=== PATIENT | female | born 1965 | race Caucasian/White ===

== ENCOUNTER → 2020-06-16 09:21 | Outpatient (BNVA) | payer MEDICARE, MEDICAID, SELFPAY | PROVIDERS: PCP Internal Medicine; Visit Provider Nurse Practitioner Family | DX: Z13.89 Encounter for screening for other disorder (principal) | CPT/HCPCS: Q3014 ==

== ENCOUNTER → 2020-07-01 10:48 | Outpatient (REF) | payer MEDICARE, MEDICAID, SELFPAY | LOC: HO.SL 10:48 | PROVIDERS: PCP Internal Medicine; Visit Provider Nurse Practitioner Family | DX: G47.33 Obstructive sleep apnea (adult) (pediatric) (principal) | CPT/HCPCS: 95806 ==

== ENCOUNTER → 2020-09-22 08:28 | Outpatient (BNVA) | payer MEDICARE, MEDICAID, SELFPAY | PROVIDERS: PCP Internal Medicine; Visit Provider Nurse Practitioner Family | CPT/HCPCS: Q3014 ==

== ENCOUNTER → 2021-01-12 10:35 | Outpatient (BNVA) | payer MEDICARE, MEDICAID, SELFPAY | PROVIDERS: PCP Internal Medicine; Visit Provider Nurse Practitioner Family | DX: G47.33 Obstructive sleep apnea (adult) (pediatric) (principal) | CPT/HCPCS: 99212 ==

== ENCOUNTER → 2021-04-14 20:52 | Outpatient (REF) | payer MEDICARE, MEDICAID, SELFPAY | LOC: HO.SL 20:52 | PROVIDERS: Visit Provider Nurse Practitioner Family | DX: G47.33 Obstructive sleep apnea (adult) (pediatric) (principal) | CPT/HCPCS: 95811 ==

== ENCOUNTER → 2021-05-04 08:18 | Outpatient (BNVA) | payer MEDICARE, MEDICAID, SELFPAY | PROVIDERS: PCP Internal Medicine; Visit Provider Nurse Practitioner Family | DX: Z13.89 Encounter for screening for other disorder (principal) | CPT/HCPCS: Q3014 ==

== ENCOUNTER → 2021-08-27 08:14 | Outpatient (BNVA) | payer MEDICARE, MEDICAID, SELFPAY | PROVIDERS: PCP Internal Medicine; Visit Provider Nurse Practitioner Family | DX: G47.33 Obstructive sleep apnea (adult) (pediatric) (principal) | CPT/HCPCS: 99212 ==

== ENCOUNTER 2023-02-15 15:50 | Emergency (ER) | payer MEDICAID, SELFPAY ==
[2023-02-15 16:17] VITALS: BP 152/89; PULSE 94; RESP 16; TEMP 37; O2SAT 97; BMI 30.7
--- NOTE | 2023-02-15 16:18 | ED.GENADULT ---
HPI - General Adult General Chief complaint: General Medical Stated complaint: needs ultrasound.. Time Seen by Provider: 02/15/23 18:43 Source: patient, RN notes reviewed and old records reviewed Mode of arrival: ambulatory Limitations: no limitations History of Present Illness HPI narrative: 57-year-old female with past medical history significant for DVT not currently anticoagulated presents for evaluation of right calf pain. Patient reports that she felt a bump in her right lower leg and some pain over the last few days She tried to call her doctor to get an appointment but was told to go to the ER to rule out DVT instead Denies any chest pain or shortness of breath She states that she has not been on anticoagulation for approximately 6 years since her last DVT No fevers or chills She states that her son was with her tested positive for COVID-19 yesterday. She has no signs or symptoms of COVID-19 but would like to be tested Related Data Home Medications Medication Instructions Recorded Confirmed atorvastatin 40 mg tablet 40 mg PO BEDTIME 06/16/20 01/12/21 estradiol 10 mcg vaginal tablet 10 mcg vaginal 2XW 06/16/20 01/12/21 fluoride (sodium) 1.1 % dental dental BEDTIME 06/16/20 01/12/21 paste mirabegron 50 mg tablet,extended 50 mg PO DAILY 06/16/20 01/12/21 release 24 hr omeprazole 40 mg capsule,delayed 40 mg PO DAILY 06/16/20 01/12/21 release duloxetine 20 mg capsule,delayed 60 mg PO BID 08/27/21 release Allergies Allergy/AdvReac Type Severity Reaction Status Date / Time No Known Allergies Allergy Verified 08/27/21 08:26 Review of Systems Constitutional: Constitutional: Denies chills and Denies fever(s) Eyes: Eyes: Denies blurry vision ENT: Denies sore throat Cardiovascular: Cardiovascular: Denies chest pain and Denies dyspnea Respiratory: Respiratory: Denies cough and Denies dyspnea Gastrointestinal: Gastrointestinal: Denies abdominal pain, Denies nausea and Denies vomiting Musculoskeletal: Musculoskeletal: Denies back pain Comments: Right leg pain Integumentary/Breasts: Skin/Breast: Denies rash PMFSH Past Medical History Onset Date is defined in the Problem List Problems that require an onset date and time if occurred within 24 hrs of arrival to the ED Aortic Dissection and Rupture; Neurologic impairment; Cardiopulmonary Arrest; Endotracheal Intubation; Insertion or Replacement of Mechanical Circulatory Assist Device Surgical History H/O meniscectomy of right knee History of meniscectomy of left knee Family History Family History Mother Pacemaker Heart disease Father HTN (hypertension) Heart disease Sister No problems noted. Brother No problems noted. Social History Social History Alcohol intake: current Alcohol intake frequency: holidays/special occasions only Patient Tobacco Use Status: Never used Tobacco Advance Directives: No Advance Directives Information Provided: No Physical Exam ED Vital Signs: Vital Signs - 24 hr 02/15/23 16:17 02/15/23 18:42 Temperature 98.6 F Pulse Rate 94 88 Respiratory Rate 16 16 Blood Pressure 152/89 H 137/95 H Pulse Oximetry 97 98 Oxygen Delivery Method Room Air Room Air BMI result Body Mass Index 30.7 Const General: healthy appearing, comfortable, no acute distress, alert and awake Nutritional Appearance: well nourished Orientation/consciousness: patient oriented x3 HENMT Head: Yes normocephalic and Yes atraumatic Eyes Eyelids: Yes eyelids normal Conjunctivae: conjunctivae normal Sclerae: sclerae normal Corneas: corneas normal Pupils: Equal, round and reactive pupils present EOM: EOMs intact bilaterally Neck Neck: Yes full ROM Resp Effort & Inspection: normal respiratory effort, able to speak in complete sentences and not labored Skin General skin exam: elasticity normal Neuro General: patient oriented x3 Cranial nerves: Yes Equal, round and reactive pupils present and Yes Bilaterally intact EOM present Cognition (Neuro): normal cognition Extrem Other: Moving all extremities well without any obvious deformities. No rashes to the right lower extremity, no erythema. The patient does have varicose veins the right lower leg. Positive calf tenderness, negative Homans sign Course Course Course Narrative: RME: 57 yo w/ PMHx DVT presenting to the ED c/o requesting ultrasound of LLE due to concern of blood clot. Not currently on anticoagulation. Admits son tested positive for COVID, did test negative 2x at home on home COVID testing Venous duplex ultrasound, COVID and influenza testing ordered Full HPI, ROS and PE to be performed by primary ED provider. Medical Decision Making Medical Decision Making MDM Narrative: Patient had ultrasound to evaluate for DVT. She has no evidence of DVT but does have superficial thrombophlebitis. I discussed this at length with her. She was also tested for COVID-19 which tested negative. Her vital signs are stable, she is stable for discharge at this time. Differential Diagnosis Differential Diagnoses: The differential diagnosis associated with the presentation includes DVT Calf pain Varicose veins Thrombophlebitis COVID-19 Lab Data Labs: Lab Results 02/15/23 Range/Units 16:48 COVID-19 (DORA) Negative (Negative) COVID-19 Clin Com See Note Influenza Type A (JERRY) Negative (Negative) Influenza Type B (JERRY) Negative (Negative) Influenza A & B Note See Note Radiology Impression Discussion of test interpretation with radiology: I have reviewed the radiologist's reading. (No evidence of DVT) Discharge Plan Discharge Clinical Impression: Superficial thrombophlebitis Patient Disposition: Home, Self-Care Instructions: Superficial Thrombophlebitis (ED) Additional Instructions: Your ultrasound was negative for DVT You do have superficial thrombophlebitis which is likely the cause of your discomfort You may apply warm compresses to the swollen area You may use an [id number] baby aspirin daily as well Call your primary doctor to schedule follow-up Return for new or worsening symptoms Prescriptions: No Action Myrbetriq 50 mg tablet extended release 24 hr 50 mg PO DAILY omeprazole 40 mg capsule,delayed release(DR/EC) 40 mg PO DAILY estradiol 10 mcg tablet 10 mcg vaginal 2XW atorvastatin 40 mg tablet 40 mg PO BEDTIME fluoride (sodium) 1.1 % paste dental BEDTIME duloxetine 20 mg capsule,delayed release(DR/EC) 60 mg PO BID
[2023-02-15 18:42] VITALS: BP 137/95; PULSE 88; RESP 16; O2SAT 98
== END 2023-02-15 19:08 | disposition home or self-care (01) ==
PROVIDERS: Emergency Provider Emergency Medicine; PCP Internal Medicine
DX: I80.01 Phlebitis and thrombophlebitis of superficial vessels of right lower extremity (principal); M79.604 Pain in right leg; Z11.52 Encounter for screening for COVID-19
CPT/HCPCS: 87502; 87635; 93971; 99282; 99284